=== PATIENT | male | born 1970 | race Caucasian/White ===

== ENCOUNTER 2016-05-14 16:46 | Emergency (ER) | payer OTHER ==
[~2016-05-14] VITALS: Ht 167.6 cm; Wt 81.6 kg
[2016-05-14 17:03] VITALS: BP 110/66
--- NOTE | 2016-05-14 17:12 | NUR ---
PATIENT PRESENTS TO ED WITH C/O RIGHT SIDED SHOULDER BLADE PAIN X 6 MONTHS, REPORTS TESTICULAR PAIN WHEN LIFTING THINGS . DENIES N/V/D; SKIN IS PINK/WARM/DRY; AAOX4 WITH EVEN AND STEADY GAIT; LUNGS CLEAR BL; HR EVEN AND REGULAR; PT DENIES ANY FEVER, CP, SOB, OR COUGH AT THIS TIME; PATIENT STATES PAIN OF 9/10 AT THIS TIME; VSS; PATIENT POSITIONED FOR COMFORT; HOB ELEVATED; BEDRAILS UP X2; BED DOWN. ER P.A. AT BEDSIDE FOR EVAL.
[2016-05-14 17:43] VITALS: BP 113/67
--- NOTE | 2016-05-14 17:43 | NUR ---
Patient discharged with v/s stable. Written and verbal after care instructions given and explained. Patient alert, oriented and verbalized understanding of instructions. Ambulatory with steady gait. All questions addressed prior to discharge. ID band removed. Patient advised to follow up with PMD. Rx of FLEXERIL, MOTRIN, ULTRAM given. Patient educated on indication of medication including possible reaction and side effects. Opportunity to ask questions provided and answered.
== END 2016-05-14 17:43 | disposition home or self-care (01) ==
LOC: MED 16:46
DX: M25.511 Pain in right shoulder (principal); G89.29 Other chronic pain; N50.819 Testicular pain, unspecified; E11.9 Type 2 diabetes mellitus without complications

== ENCOUNTER 2020-10-28 09:12 | Emergency (ER) | payer OTHER ==
[~2020-10-28] VITALS: Ht 167.6 cm; Wt 74.1 kg
[2020-10-28 09:23] VITALS: BP 128/77
--- NOTE | 2020-10-28 09:38 | NUR ---
PT AMBULATED TO BED 3.
--- NOTE | 2020-10-28 10:05 | NUR ---
50/M presents to ED with c/o right back pain radiating to chest. Patient states for 1 week he has been having worsening back pain, denies injury or trauma. No redness, swelling or bruising noted to site, right back is tender to touch. Patient able to ambulate without assistance, states 7/10 sharp pain with movement. Patient alert and oriented x4, answering questions appropriately.
[2020-10-28] MEDS ORDERED: IBUPROFEN 600 MG TAB PO ONE (10:15)
--- NOTE | 2020-10-28 10:15 | NUR ---
factory focus technician at bedside.
[2020-10-28] MEDS ORDERED: IBUP-2213 PO ×2 (10:55→11:01)
[2020-10-28] MEDS ORDERED: LID5T TP ×2 (10:55→11:01)
[2020-10-28 11:03] VITALS: BP 115/61
--- NOTE | 2020-10-28 11:03 | NUR ---
Patient discharged with v/s stable. Written and verbal after care instructions given and explained. Patient alert, oriented and verbalized understanding of instructions. Ambulatory with steady gait. All questions addressed prior to discharge. ID band removed. Patient advised to follow up with PMD. Rx of LIDODERM PATCH AND IBUPROFEN given. Patient educated on indication of medication including possible reaction and side effects. Opportunity to ask questions provided and answered.
== END 2020-10-28 11:03 | disposition home or self-care (01) ==
LOC: MED 09:12
DX: M54.6 Pain in thoracic spine (principal); E11.9 Type 2 diabetes mellitus without complications
CPT/HCPCS: 71045; 99283